=== PATIENT | male | born 1960 | race African-American/Black ===

== ENCOUNTER 2017-05-23 07:24 | Outpatient (CLI) | payer BC ==
[2017-05-23] MEDS ORDERED: Gadobenate Dimeglumine 529 MG/1 ML (20ML VIAL) ONE (11:37)
--- NOTE | 2017-05-23 12:32 | MRI ---
MRI OF THE ABDOMEN WITH AND WITHOUT IV CONTRAST: INDICATION: History of chronic hepatitis C viral infection with reported liver lesion. The patient is not having any pain and has not had any prior surgery or injury to the abdomen. TECHNIQUE: Multiplanar, multisequence MR images were obtained of the with and without IV contrast utilizing 20 c c of [employer]. No comparisons are available. FINDINGS: There are numerous scattered T2 hyperintense, T1 hypointense lesions seen throughout the right and le ft hepatic lobes. One of the largest lesions is seen within segment 5 of the right hepatic lobe jane uring 2.6 cm on image 13 of series 3. No restricted diffusion associated with these lesions. On the postcontrast images, the majority of these lesions demonstrate peripheral nodular discontinuous enha ncement with progressive central fill-in consistent with hemangioma. Some of the smaller lesions dem onstrate some peripheral enhancement with fill-in but are statistically likely reflective of addition al hemangiomas. No suspicious arterial enhancing lesions identified to suggest the presence of hepat ocellular malignancy. The spleen is normal in size measuring 9.5 cm. There is a small T2 hyperinten se, T1 hypointense nonenhancing cystic-type lesion seen within the pancreatic tail best noted on imag e 25 of 33 measuring 6 m. There are tiny suspected cysts seen within the left kidney. The adrenal g lands are normal-appearing. No pathologically enlarged lymph nodes or free fluid are evident. No ab normal marrow signal intensity is grossly evident. IMPRESSION: 1. Numerous hemangiomas within the liver. No suspicious arterially enhancing lesion is evident to s uggest the presence of underlying hepatocellular malignancy. 2. Small nonenhancing cystic lesion with pancreatic tail may reflect a small serocystic adenoma or p ossibly a tiny intraductal papillary mucinous neoplasm tumor. As a conservative measure, would recom mend a followup examination in 1 year to document stability. 3. Small left renal cyst. POS: [facility]
== END 2017-05-23 07:25 | disposition home or self-care (01) ==
LOC: MRI 07:24
PROVIDERS: ATTEND Internal Medicine Gastroenterology
DX: B18.2 Chronic viral hepatitis C (principal); K76.9 Liver disease, unspecified; D18.09 Hemangioma of other sites; K86.89 Other specified diseases of pancreas; N28.1 Cyst of kidney, acquired
CPT/HCPCS: 74183; A9579

== ENCOUNTER 2017-09-20 18:32 | Observation (INO) | payer BC, OTHER ==
[2017-09-20 19:05] LABS: #Basophils 0.1 thou/uL (0.0-0.2); #Eosinphils 0.1 thou/uL (0.0-0.7); #Lymphocytes 2.5 thou/uL (1.20-3.40); #Monocytes 0.7 thou/uL (0.11-0.59); #Neutrophils 1.9 thou/uL (1.40-6.50); %Basophils 1.1 % (0.0-1.0); %Eosinophils 1.3 % (0.0-10.0); %Lymphocytes 47.9 % (21.0-51.0); %Monocytes 13.3 % (0.0-10.0); %Neutrophils 36.3 % (42.0-75.0); Hemoglobin 14.7 g/dL (14.0-18.0); Mean Corpuscular HGB CONC 30.7 g/dL (32.0-36.0); Mean Corpuscular Hemoglobin 23.2 pg (27.0-31.0); Mean Corpuscular Volume 75.5 fl (80.0-94.0); Mean Platelet Volume 6.9 fL (7.4-10.4); Platelet Count 184 thou/uL (130-400); RBC Distribution Width 11.9 % (11.5-14.5); Red Blood Cell (RBC) Count 6.33 mill/uL (4.70-6.10); White Blood Cell (WBC) Count 5.1 thou/uL (4.8-10.8)
[2017-09-20 19:27] LABS: ALT (SGPT) 16 U/L (8-55); AST (SGOT) 20 U/L (5-34); Albumin 4.2 g/dL (3.5-5.0); Alkaline Phosphatase 77 U/L (40-150); Anion Gap 10 mmol/L (10-20); BUN (Urea Nitrogen) 17 mg/dL (8.4-25.7); Bilirubin, Total 0.4 mg/dL (0.2-1.2); CK (CPK) 299 U/L (30-200); Calc. Creatinine Clearance 0 mL/min (70-130); Calcium 10.2 mg/dL (7.8-10.44); Carbon Dioxide 29 mmol/L (22-29); Chloride 104 mmol/L (98-107); Estimated GFR-MDRD 86; Globulin 3.1 g/dL (2.4-3.5); Glucose 87 mg/dL (70-105); Potassium 3.8 mmol/L (3.5-5.1); Protein, Total 7.3 g/dL (6.0-8.3); Sodium 139 mmol/L (136-145)
[2017-09-20 19:29] LABS: CKMB 5.3 ng/mL (0-6.6); Troponin I Less than 0.010 ng/mL (< 0.028)
--- NOTE | 2017-09-20 19:58 | RAD ---
PORTABLE AP CHEST X-RAY 09/20/17 HISTORY: Syncope. COMPARISON: None available. FINDINGS: The cardiac silhouette and pulmonary vasculature are within normal limits. The lungs are clear. osseo us structures are intact. Vascular calcifications seen in the thoracic aorta. IMPRESSION: No acute cardiopulmonary process. POS: [facility]
--- NOTE | 2017-09-20 20:14 | CT ---
NONCONTRAST CT HEAD: 09/20/17 HISTORY: Patient states that when he got out of shower his left side was numb and patient started experiencing shortness of breath. COMPARISON: None available. FINDINGS: There is a few scattered low density areas seen in the periventricular white matter which are nonspec ific but may be related to mild chronic small vessel ischemic changes. There is no evidence of an acu te cortical infarction, hemorrhage, mass effect, or midline shift. The ventricular system is normal i n size, shape, and position. There is mucosal thickening in the ethmoidal air cells bilaterally. The visualized mastoid air cells are clear. There is a mixed sclerotic and lytic lesion seen within the vertex of the skull. The exac t etiology is uncertain. IMPRESSION: 1. No acute intracranial abnormalities demonstrated. 2. Findings likely attributable to mild chronic small vessel ischemic changes. 3. Mild sinus disease. 4. Mixed lytic and sclerotic lesion at the vertex. The exact etiology is uncertain. While this h as a nonaggressive appearance, a bone scan may be beneficial for further evaluation and to exclude ab normal uptake and to evaluate for other lesions. POS: [facility]
[2017-09-20 21:09] LABS: Cardiac Risk 4.1 (Less than 4.5)
[2017-09-20 23:52] LABS: Troponin I Less than 0.010 ng/mL (< 0.028)
[2017-09-21 02:05] LABS: Troponin I Less than 0.010 ng/mL (< 0.028)
[2017-09-21] MEDS ORDERED: Acetaminophen 325 MG TAB PO PRN (02:30)
[2017-09-21] MEDS ORDERED: Milk Of Magnesia 30 ML UDCUP PO PRN (02:30)
[2017-09-21] MEDS ORDERED: hydrALAZINE 20 MG/ML VIAL SLOW IVP PRN (02:30)
[2017-09-21] MEDS ORDERED: Calcium Carbonate 500 MG ChewTAB PO PRN (02:30)
[2017-09-21] MEDS ORDERED: Ondansetron ODT 4 MG TAB PO PRN (02:30)
[2017-09-21] MEDS ORDERED: Ondansetron HCl/PF 4 MG/2 ML Vial IVP PRN (02:30)
--- NOTE | 2017-09-21 03:11 | HP ---
DATE OF ADMISSION: 09/20/2017 The patient was seen and examined on 09/20/2017. PRIMARY CARE PHYSICIAN: [facility]. CHIEF COMPLAINT: Stroke-like symptoms. HISTORY OF PRESENT ILLNESS: The patient is a 57-year-old -Citizen Of [place] male with ongoing tobacco abuse, hypertension, presented to the emergency room with stroke-like symptoms. Around 5:30 p.m., patient had sudden onset of left-sided numbness along with some lightheadedness. H e felt that he was going to pass out. He had just taken a shower prior to this. He also had some sh ortness of breath at that time. He denied any weakness of any extremities, chest pain, palpitations, loss of consciousness, seizure, or headache. His symptoms have more or less resolved at this time. PAST MEDICAL HISTORY: 1. Hypertension. 2. Chronic hepatitis C, currently on Harvoni. PAST SURGICAL HISTORY: Reviewed with the patient and none. ALLERGIES: No known drug allergies. CURRENT HOME MEDICATIONS: Hydrochlorothiazide 25 mg daily, Harvoni 90/400 mg daily over the last 3 m ont. SOCIAL HISTORY: Patient continues to smoke up to half pack a day for 30 years or so. No alcohol or drug use. He is FULL CODE. Makes his own decisions with the help of his family. FAMILY HISTORY: Hypertension runs in his family. One family member with prostate cancer and another with breast cancer. REVIEW OF SYSTEMS: The following complete review of systems was negative, unless otherwise mentioned in the HPI or below: Constitutional: Weight loss or gain, ability to conduct usual activities. Skin: Rash, itching. Eyes: Double vision, pain. ENT/Mouth: Nose bleeding, neck stiffness, pain, tenderness. Cardiovascular: Palpitations, dyspnea on exertion, orthopnea. Respiratory: Shortness of breath, wheezing, cough, hemoptysis, fever or night sweats. Gastrointestinal: Poor appetite, abdominal pain, heartburn, nausea, vomiting, constipation, or diarr hea. Genitourinary: Urgency, frequency, dysuria, nocturia. Musculoskeletal: Pain, swelling. Neurologic/Psychiatric: Anxiety, depression. Allergy/Immunologic: Skin rash, bleeding tendency. PHYSICAL EXAMINATION: VITAL SIGNS: Temperature 98.5, respiration 18, pulse 80, blood pressure 143/90, O2 saturation 98% on room air. GENERAL: A 57-year-old male, in no apparent distress. HEENT: Head, atraumatic, normocephalic. Sclerae are anicteric. Moist mucous membrane, no oral lesi on. NECK: Supple. No JVD appreciated. No carotid bruit. LUNGS: Clear to auscultation bilaterally. No wheezing, rales, or rhonchi. HEART: S1, S2 present. Regular rate and rhythm. No murmur, rubs, or gallops appreciated. ABDOMEN: Soft, nontender, bowel sounds present. EXTREMITIES: No edema or calf tenderness. NEUROLOGIC: Cranial nerves II-XII were normal on examination. Power was 5/5 in all extremities. Fi ofcm-tl-pawu test was normal. Sensation to touch was normal bilaterally. PSYCHIATRY: Alert, awake, oriented x3. SKIN: Warm and dry. LYMPH NODES: No palpable lymph nodes in the neck. PERIPHERAL VASCULAR: Radial pulses palpable bilaterally. MUSCULOSKELETAL: No joint swelling or tenderness. LABORATORY AND X-RAY FINDINGS: CBC showed WBC 5.1, hemoglobin 14.7, hematocrit 47.8, platelet 184. Chemistries showed sodium 139, potassium 3.8, chloride 104, bicarbonate 29, BUN 17, creatinine 1.07. LFTs in normal range. Cardiac enzymes were normal. Lipid profile showed cholesterol 210, triglycerides 78, LDL 143. EKG by my review showed sinus rhyth m without significant ST-T wave changes. CT scan of the brain was negative for acute cerebrovascular accident. Chest x-ray by my review was negative for acute findings. IMPRESSION: 1. Transient ischemic attack. 2. Chronic kidney disease stage 2. 3. Hypertension. 4. Chronic hepatitis C, currently on medications. 5. Ongoing tobacco abuse. PLAN: The patient will be monitored in the stroke unit. Stroke workup including MRI of the brain an d echocardiogram will be obtained. We will start him on aspirin. Low dose statin should be started. We will hold hydrochlorothiazide for now. Frequent neuro checks. We will rule out folic acid and vitamin B12 deficiency. Deep venous thrombosis prophylaxis with sequential compression devices. Plan of care was discussed with the patient in detail. He stated understanding.
[2017-09-21] MEDS ORDERED: Cyanocobalamin (Vitamin B-12) 1,000 MCG TAB PO SCH (09:00)
[2017-09-21] MEDS ORDERED: Multivit, Therapeutic 1 TAB PO SCH (09:00)
[2017-09-21] MEDS ORDERED: Aspirin 81 mg Enteric Coated Tablet PO SCH (09:00)
[2017-09-21] MEDS ORDERED: Folic Acid 1 MG TAB PO SCH (09:00)
[2017-09-21] MEDS ORDERED: Aspirin 325 MG TAB PO SCH (09:00)
--- NOTE | 2017-09-21 11:06 | ULT ---
CAROTID DUPLEX SONOGRAM: Date: 09/21/17 HISTORY: CVA. RIGHT: Color and spectral Doppler evaluation, peak systolic velocity of 50 cm/second, and ICA/CCA ratio of 0.6 suggests no hemodynamically significant stenosis within the extracranial right ICA. Antegrade simi w is present within the vertebral artery. LEFT: No significant plaque. Color and spectral Doppler evaluation, peak systolic velocity of 58 cm/second, and ICA/CCA ratio of 1.0 suggests no hemodynamically significant stenosis within the extracranial le ft ICA. Antegrade flow is present within the vertebral artery. IMPRESSION: No significant plaque. No sonographic evidence of significant extracranial ICA stenosis. POS: [facility]
--- NOTE | 2017-09-21 13:33 | MRI ---
MRI BRAIN NONCONTRAST: Date: 09/21/17 HISTORY: TIA. FINDINGS: There is no evidence of acute intracranial hemorrhage or infarct. Ventricles appear normal in size, s hape, and position. Very mild chronic ischemic small vessel disease is apparent within the periventri cular white matter. There is no mass effect or shift of midline structures. Minimal mucosal thickenin g within the right maxillary sinus and ethmoid air cells. IMPRESSION: No acute intracranial abnormalities are demonstrated. POS: [facility]
[2017-09-21 15:47] VITALS: TEMP 98.1
[2017-09-21 16:46] VITALS: BP 155/97
--- NOTE | 2017-09-22 01:31 | DIS ---
PRIMARY CARE PROVIDER: [facility]. DATE OF ADMISSION: 09/20/2017 DATE OF DISCHARGE: 09/21/2017 DISCHARGE DIAGNOSES: 1. Transient ischemic attack. 2. Dyslipidemia. CONDITION OF PATIENT ON THE DAY OF DISCHARGE: Stable. I assessed Mr. Chadwick on the day of discha rge. He denies any chest pain or shortness of breath. Vital signs are stable. S1 and S2 are heard, regular. Lungs are clear to auscultation bilaterally. DISCHARGE MEDICATIONS: Aspirin 81 mg daily, Lipitor 10 mg at bedtime, hydrochlorothiazide 25 mg elsa y, Harvoni 1 tablet daily, nicotine patch daily. HOSPITAL COURSE: Mr. Chadwick is a pleasant 57-year-old gentleman, who was admitted to the hospital on observation status on 09/20/2017 for suspected transient ischemic attack. He presented with left -sided numbness and lightheadedness. He was started on aspirin. He was also started on statin. He had triglycerides of 78, cholesterol 2 10, LDL cholesterol 143 and HDL cholesterol 51. His folate was low at 5, but his hemoglobin was norm al. Noncontrast CT scan of the brain on 09/20/2017 did not show any acute intracranial abnormalities. He had a mixed lytic and sclerotic lesion at the vertex. The exact etiology is uncertain, but this les ion had a nonaggressive appearance. He is advised to have a bone scan for further evaluation and to exclude abnormal uptake and to evaluate for other lesions. MRI of the brain on 09/21/2017 did not sh ow any acute intracranial abnormalities. He also had carotid Dopplers on 09/21/2017, which did not s how any significant block. He also had a 2D echocardiogram. At the time of this dictation, the repo rt is pending. He is advised to follow up with his primary care provider for the result. Many thanks for allowing me to participate in your patient's care. Please feel free to contact me wi th any questions or concerns. DISCHARGE DESTINATION: Home.
[2017-09-22] MEDS ORDERED: Enoxaparin Sodium 40 MG/0.4 ML SYRINGE SC SCH ×2 (09:00→21:00)
[2017-09-22] MEDS ORDERED: Atorvastatin Calcium 10 MG TAB PO SCH (21:00)
--- NOTE | 2017-11-06 14:38 | EKG ---
Test Reason : Blood Pressure : / mmHG Vent. Rate : 080 BPM Atrial Rate : 080 BPM P-R Int : 148 ms QRS Dur : 084 ms QT Int : 374 ms P-R-T Axes : 049 031 012 degrees QTc Int : 431 ms Normal sinus rhythm with sinus arrhythmia Septal infarct , age undetermined Abnormal ECG Confirmed by FERNANDA BRICENO ([id number]), script editor STEVEN PORTILLO ([id number]) on 11/06/2017 2:37:33 PM Referred By: Confirmed By:FERNANDA BRICENO
== END 2017-09-21 16:15 | disposition home or self-care (01) ==
LOC: ERS 18:32 → 2SE 22:12
PROVIDERS: ADMIT Internal Medicine; ATTEND Internal Medicine
DX: G45.9 Transient cerebral ischemic attack, unspecified (principal); E78.5 Hyperlipidemia, unspecified; F17.210 Nicotine dependence, cigarettes, uncomplicated; B18.2 Chronic viral hepatitis C; I12.9 Hypertensive chronic kidney disease with stage 1 through stage 4 chronic kidney disease, or unspecified chronic kidney disease; N18.2 Chronic kidney disease, stage 2 (mild); Z79.899 Other long term (current) drug therapy
CPT/HCPCS: 36415; 70450; 70551; 71045; 80053; 80061; 82550; 82553; 82607; 82746; 84484; 85025; 93005; 93306; 93880; 94760; 99406; G0378; G8978-GP-CH; G8979-GP-CH; G8980-GP-CH

== ENCOUNTER 2017-12-04 14:12 | Outpatient (CLI) | payer BC ==
--- NOTE | 2017-12-04 15:59 | MRI ---
MRI ABDOMEN WITH AND WITHOUT IV CONTRAST: 12/04/17 HISTORY: Chronic hepatitis C. COMPARISON: 05/23/17. Multiple liver lesions (consistent with hemangiomas) noted on the previous exam are stable. No new e nhancing liver masses are seen to suggest hepatocellular malignancy. The spleen, adrenal glands and right kidney are unremarkable. Tiny cysts on the left kidney are again seen. The 6 mm non-enhancing cystic lesion in the tail of the pancreas is also stable. No free fluid or lymphadenopathy is seen. No evidence of aneurysmal dilatation of the abdominal aorta is noted. Th e bone marrow signal is normal. IMPRESSION: 1. Stable exam. 2. Liver hemangiomas. 3. Tiny cystic lesion in the pancreatic tail. 4. Tiny left renal cysts. POS: [facility]
== END 2017-12-04 14:13 | disposition home or self-care (01) ==
LOC: MRI 14:12
PROVIDERS: ATTEND Internal Medicine Gastroenterology
DX: B18.2 Chronic viral hepatitis C (principal); R93.3 Abnormal findings on diagnostic imaging of other parts of digestive tract; N28.1 Cyst of kidney, acquired; D18.03 Hemangioma of intra-abdominal structures; K86.2 Cyst of pancreas
CPT/HCPCS: 74183

== ENCOUNTER 2018-04-07 09:49 | Outpatient (CLI) | payer BC, OTHER ==
--- NOTE | 2018-04-07 12:01 | RAD ---
CHEST PA AND LATERAL: History: 58-year-old male with history of smoking history. Comparison: 09-20-17 FINDINGS: Heart size is within normal limits. The lungs are clear. IMPRESSION: No acute intrathoracic disease. No evidence for pneumonia. POS: [facility]
== END 2018-04-07 09:50 | disposition home or self-care (01) ==
LOC: BICRAD 09:49
PROVIDERS: ATTEND Family Medicine
DX: F17.200 Nicotine dependence, unspecified, uncomplicated (principal)
CPT/HCPCS: 71046

== ENCOUNTER 2018-06-26 08:36 | Outpatient (CLI) | payer BC ==
--- NOTE | 2018-06-26 12:01 | MRI ---
MRI OF THE ABDOMEN WITHOUT AND WITH CONTRAST: COMPARISON: 12/04/2017. HISTORY: Followup liver masses. Hemangioma is seen in the liver on prior examination. TECHNIQUE: Multiplanar, multisequence MR images were obtained of the abdomen without and with IV contrast. FINDINGS: There are numerous scattered lobulated masses in the liver demonstrating high T2 signal. After the a dministration of contrast, these masses demonstrate peripheral puddling and fill-in. These are consi stent with multiple hepatic hemangiomas. The largest measures 2.6 cm in greatest dimension. These a re stable compared to the prior examination. There are tiny subcentimeter cysts in the left kidney. There is a tiny subcentimeter cyst in the morse creatic tail near the splenic hilum. The gallbladder, kidneys, adrenal glands, and spleen are unrema rkable. No abdominal adenopathy is seen. No marrow signal abnormality is present. IMPRESSION: 1. Stable hepatic hemangiomas. 2. Stable small pancreatic tail cyst. 3. Stable small left renal cysts. POS: [facility]
== END 2018-06-26 08:37 | disposition home or self-care (01) ==
LOC: SCSMRI 08:36
PROVIDERS: ATTEND Physician Assistant Medical
DX: B18.2 Chronic viral hepatitis C (principal); N28.1 Cyst of kidney, acquired; K86.2 Cyst of pancreas; D18.03 Hemangioma of intra-abdominal structures
CPT/HCPCS: 74183

== ENCOUNTER 2019-02-19 08:34 | Outpatient (CLI) | payer BC ==
--- NOTE | 2019-02-19 10:17 | MRI ---
MRI ABDOMEN WITH AND WITHOUT IV CONTRAST: HISTORY: Liver lesion. COMPARISON: 06/26/2018. FINDINGS: Multiple scattered masses in the liver again seen demonstrating high T2 signal and postcontrast perip heral nodular enhancement with centripetal filling, consistent with multiple hepatic hemangiomas, the largest measuring approximately 2.5 cm. These masses are stable. Subcentimeter cysts in the left kidney are again seen. Tiny subcentimeter cyst in the pancreatic tail near the splenic hilum is again seen. The gallbladder, kidneys, adrenal glands and spleen are normal. No lymphadenopathy is seen. Marrow signal in the bones is normal. No free fluid is identified . There is no evidence of aneurysmal dilatation of the abdominal aorta. IMPRESSION: 1. Stable exam. 2. Stable hepatic hemangiomas, small pancreatic tail cyst and small left renal cysts. Transcribed Date/Time: 02/19/2019 10:25 AM
[2019-02-19] MEDS ORDERED: Gadobenate Dimeglumine 529 MG/1 ML (20ML VIAL) ONE (17:19)
== END 2019-02-19 08:35 | disposition home or self-care (01) ==
LOC: MRI 08:34
PROVIDERS: ATTEND Physician Assistant Medical
DX: K76.89 Other specified diseases of liver (principal); D18.09 Hemangioma of other sites; K86.2 Cyst of pancreas; N28.1 Cyst of kidney, acquired
CPT/HCPCS: 74183; A9577

== ENCOUNTER 2020-11-04 06:58 | Outpatient (CLI) | payer BC | END 2020-11-04 06:59 | disposition home or self-care (01) | LOC: BICULT 06:58 | PROVIDERS: ATTEND Internal Medicine Gastroenterology | DX: D18.03 Hemangioma of intra-abdominal structures (principal); K74.60 Unspecified cirrhosis of liver; Z86.19 Personal history of other infectious and parasitic diseases; K76.9 Liver disease, unspecified | CPT/HCPCS: 76705 ==

== ENCOUNTER 2021-06-30 08:17 | Outpatient (CLI) | payer BC | END 2021-06-30 08:18 | disposition home or self-care (01) | LOC: BICULT 08:17 | PROVIDERS: ATTEND Physician Assistant Medical | DX: K74.60 Unspecified cirrhosis of liver (principal); D18.03 Hemangioma of intra-abdominal structures | CPT/HCPCS: 76705 ==

== ENCOUNTER 2022-01-26 07:46 | Outpatient (CLI) | payer BC | END 2022-01-26 07:47 | disposition home or self-care (01) | LOC: BICULT 07:46 | PROVIDERS: ATTEND Physician Assistant Medical | DX: K74.60 Unspecified cirrhosis of liver (principal); D18.03 Hemangioma of intra-abdominal structures; Z86.19 Personal history of other infectious and parasitic diseases | CPT/HCPCS: 76705 ==